=== PATIENT | male | born 1960 | race Caucasian/White ===

== ENCOUNTER 2022-01-18 06:54 | Observation (INO) ==
--- NOTE | 2021-12-15 10:59 | PAT Medication Instructions ---
Medication Instructions Date of Service December 15, 2021 Home Medications allopurinol 100 mg tablet 100 mg PO QAM multivitamin 1 tab PO QAM omega-3 fatty acids 1,000 mg PO QAM STOP taking 2 weeks before surgery omega-3 fatty acids 1,000 mg PO QAM DO NOT take the morning of surgery multivitamin 1 tab PO QAM Take morning of surgery With a small sip of water, OTHERWISE NOTHING TO EAT OR DRINK AFTER MIDNIGHT: allopurinol 100 mg tablet 100 mg PO QAM Other Notes If you have any questions please call us at [phone] or [phone] or [phone] or [phone]
--- NOTE | 2021-12-20 15:04 | Anesthesiology Consultation ---
Date of Service December 20, 2021 Assessment & Plan (1) Encounter for pre-operative examination: - COVID screening: Per assessment on 12/20: No known COVID-19 positive contacts or current COVID-19 related symptoms. Travel screen- returned from travel to [place] 2 weeks ago. Patient vaccinated. At surgeon discretion if preop Covid testing being done. - Patient acceptable risk for surgery pending surgeon-ordered PCP preop ev aluation (Dr. Lincoln, scheduled 12/31). Chart Review Chart Review: Patient seen in Pre Admission Testing Teaching & Discussion Pre-Anesthesia Teaching/Discussion Notes: Instructed NPO after midnight before surgery,except medications with 15 cc of water. Medication instructions provided according to the PAT guidelines. History Surgery Operation Date: 01/18/22 09:55 Proposed Procedures p Bilateral Total Knee Arthroplasty - Randell Hernandez DO Height/Weight Height: 5 ft 11 in Weight: 101.9 kg Allergies Allergy/AdvReac Type Severity Reaction Status Date / Time No Known Allergies Allergy Verified 12/14/21 16:32 Medications Home Medications Medication Instructions Recorded Confirmed Last Taken allopurinol 100 mg tablet 100 mg PO QAM 12/14/21 12/14/21 Unknown multivitamin 1 tab PO QAM 12/14/21 12/14/21 Unknown omega-3 fatty acids 1,000 mg PO QAM 12/14/21 12/14/21 Unknown Past Medical History Medical History Gout History of COVID-19 Dx 03/2020 - mild symptoms > resolved Exercise / Class Metabolic Activity II 4-5 Yardwork/Stairs/Walk up hill (one FS (no CP, no SOB)) Past Family History Family History Other No family history of adverse response to anesthesia Past Surgical History Surgical History History of colonoscopy History of repair of anterior cruciate ligament of left knee History of wisdom tooth extraction Past Anesthesia History No Hx of Anesthesia Complications and No Family Hx of Anesthesia Complications History of PONV No Hx of PONV and No Hx of Motion Sickness Social History Smoking Status: Never smoker tobacco type: smokeless tobacco Do You Dip or Chew Tobacco: Yes (chews (advised none DOS)) Hx Alcohol Use: Yes Alcohol type: beer alcohol intake frequency: a few times a week Hx Substance Use: No substance use type: does not use Review of Systems Patient denies chest pain, shortness of breath, dyspnea on exertion, fever, chills, cough, wheezing, palpitations. Physical Exam Vital Signs VITALS BP 152/84 P 82 TEMP 98.8 SP02 96%RA RESP 16 PHYSICAL Full cervical extension range of motion. Full TMJ range of motion. TMD 3.5 finger breaths Mallampati Score 2 Dentition: intact Lungs: clear throughout to auscultation Cardiac: regular rate and rhythm, no murmurs noted Spine: normal Carotid arteries: negative bruit Extremities: no edema Lab Results Anesthesia Preop Results Results Anesthesia Widget: WBC 6.12 K/ul (4.8-10.8) 12/20/21 Hgb 14.3 g/dl (14.0-18.0) 12/20/21 Hct 40.6 % (40.1-51.0) 12/20/21 Plt 173 K/uL (130-400) 12/20/21 Na 140 mmol/L (136-145) 12/20/21 K 4.0 mmol/L (3.5-5.1) 12/20/21 Cl 106 mmol/L (98-107) 12/20/21 CO2 26 mmol/L (21-32) 12/20/21 BUN 15 mg/dl (6-23) 12/20/21 Creat 1.15 mg/dl (0.6-1.4) 12/20/21 Glucose Level 107 mg/dl (70-99(Fasting)) H 12/20/21 PT 10.3 Seconds (9.0-12.0) 12/20/21 PTT 25.8 Seconds (21.0-31.0) 12/20/21 INR 1.0 (0.9-1.1) 12/20/21 HA1c 5.7 % (4.5-5.6) H 12/20/21 Urine Color Yellow 12/20/21 Urine Appearance Clear (Clear) 12/20/21 Urine pH 5.5 (4.5-7.5) 12/20/21 Urine Specific [place] 1.021 (1.000-1.030) 12/20/21 Urine Protein Negative (Negative) 12/20/21 Urine Glucose (UA) Negative (Negative) 12/20/21 Urine Ketones Negative (Negative) 12/20/21 Urine Blood Negative (Negative) 12/20/21 Urine Nitrite Negative (Negative) 12/20/21 Urine Bilirubin Negative (Negative) 12/20/21 Urine Urobilinogen Negative (Negative) 12/20/21 Urine Leukocyte Esterase Negative (Negative) 12/20/21 Blood Type A Positive 12/20/21 Antibody Screen NEGATIVE 12/20/21 Testing Electrocardiogram Date: 12/20/21 Findings: + NSR @ (81) Chest X-Ray Date: 12/20/21 FINDINGS: PA and lateral chest radiographs are obtained. No prior studies are available for comparison at the time of dictation. The cardiomediastinal silhouette is top normal for projection noting atherosclerotic calcification of the thoracic aorta. There is elevation of the right hemidiaphragm with bibasilar scarring/atelectasis. No airspace consolidation or large pleural effusion is identified. There is no pneumothorax. The bony thorax appears intact. Degenerative change is noted in the thoracic spine. IMPRESSION: No active disease in the chest. COVID-19 Risk Screen Screening Information COVID-19 Screen Date: 12/20/21 Exposure 21 Days Family/Household +COVID Last 21 Days: No Exposure 10 Days Any COVID Exposure Last 10 Days: No Symptoms Last 10 Days Experienced COVID Sx Last 10 Days: No + COVID 0-90 Days COVID + in Last 0-90 Days: No
--- NOTE | 2021-12-27 14:04 | History & Physical Report ---
Date of Service December 27, 2021 date of surgery: 01/18/22 Procedure: Bilateral Total Knee Arthroplasty Surgeon: Randell Hernandez Assessment & Plan (1) Degenerative arthritis of knee, bilateral: Plan: Risks and benefits of procedure discussed in detail today, patient would like to proceed with bilateral total knee replacements at [facility] as scheduled. will obtain medical clearance from Dr Lincoln prior to surgery as well as obtain PATs at [facility]. Will place on Xarelto x 1 month post op, f/u 2 weeks post op for routine post-operative care and x-ray, sooner if having any problems. will make arrangements for HHPT at the time of discharge. At this point in time, has failed conservative measures and would like to proceed with surgical intervention. The risks and benefits have been discussed including, but not limited to, risk of infection, nerve injury, stiffness, loss of motion, failure to improve, etc. Reasonable outcomes and options of treatment were discussed. An explanation of appropriate alternatives to the procedure that may be advantageous were discussed and their risks and benefits, as well as the risks and benefits of not proceeding with treatment. I offered to answer any additional inquiries concerning the treatment involved. All the patient's questions were answered. The patient is agreeable, understanding of the treatment plan and alternatives, and wishes to proceed with the treatment plan. History of Present Illness Chief Complaint: bilateral knee pain Primary Care Provider: NO PCP Chetan is a 61-year-old male who presents for preop evaluation prior to bilateral total knee replacements. Chetan has been having pain in both knees for many years now which is gradually worsened and is now affecting his daily activities including walking standing using stairs. He has previously tried cortisone injection as well as viscosupplementation with little relief. He has a history of left knee arthroscopy in the late . At this point time he admits to pain, decreased range of motion catching and stiffness in his knees. He has failed conservative measures like to proceed with bilateral total knee replacements Allergies Allergy/AdvReac Type Severity Reaction Status Date / Time No Known Allergies Allergy Verified 12/14/21 16:32 Home Medications Medication Instructions Recorded Confirmed Type allopurinol 100 mg tablet 100 mg PO QAM 12/14/21 12/14/21 History multivitamin 1 tab PO QAM 12/14/21 12/14/21 History omega-3 fatty acids 1,000 mg PO QAM 12/14/21 12/14/21 History Past Med/Surg History Medical History Gout History of COVID-19 Dx 03/2020 - mild symptoms > resolved Surgical History History of colonoscopy History of repair of anterior cruciate ligament of left knee History of wisdom tooth extraction Family History Other No family history of adverse response to anesthesia Social History Smoking Status: Never smoker Second Hand Exposure: No; Hx Alcohol Use: Yes Alcohol type: beer Hx Substance Use: No Preferred Language: French Communication Ability: Effective Lubrication Supervisor Required: No Beliefs That Will Affect Care: None Current Living Situation: Spouse and Family Current Living Situation Comment: Lives with and mother in law Feels Safe at Home: Yes Assistive Devices: Glasses Review of Systems Review of Systems: All systems reviewed & are unremarkable except as noted in HPI & below Constitutional: no fever, no chills and no sweats Respiratory: no cough and no dyspnea Cardiovascular: no chest pain, no dyspnea and no orthopnea Gastrointestinal: no abdominal pain, no nausea and no vomiting Musculoskeletal: as per Subjective / HPI Physical Exam Physical Exam: HT: 5ft 11in WT: 101.9kg Constitutional: WD/WN, vitals as above no acute distress Respiratory: normal respiratory effort, lungs clear to auscultation no respiratory distress, no labored breathing and does not use accessory muscles Cardiovascular: RRR, no murmur, no edema Gastrointestinal (Abdomen): normal bowel sounds, soft, nontender, no hepatosplenomegaly Musculoskeletal: Bilateral knee Physical exam Overall patient has varus alignment bilaterally, there is no atrophy or ecchymosis noted, +1 suprapatellar effusion in both knees, positive tenderness to both medial and lateral joint lines right knee, more medial sided tenderness to the left knee. negative patellar apprehension, positive crepitation noted to both knees with active ROM. bilateral knees stable to valgus and varus stress, trey negative, posterior drawer negative. Range of motion right knee 0/3/110, left knee 0/3/115. lower extremities are neurovascularly intact, calf soft and non tender, DP pulse +2 bilaterally. Results & Data Results & Data ([facility]) Diagnostic Findings Bilateral Knee X-ray: bilateral knee series confirm advanced degenerative changes bilateral knees, greatest medial compartments and patellofemoral joints, showing joint space narrowing, osteophyte formation and subchondral sclerosis. no acute bony pathology noted.
[~2022-01-18 06:54] MED LIST: ACETAMINOPHEN 500 MG TAB PO SCH; BUPIVACAINE 0.25% 30 ML VIAL ONE; BUPIVACAINE 0.5 % 5 MG/1 ML PF 10ML VIAL ONE; CeleBREX 200 MG CAP PO SCH; FAMOTIDINE 20 MG TAB PO SCH; GABAPENTIN 600 MG DOSE PO SCH; LR 500ML BOLUS, THEN 15ML/HR IV SCH; METOCLOPRAMIDE HCL 10 MG TABLET PO SCH; ROPIVACAINE 0.5% HCL/PF 150 MG, BUPIVACAINE 0.75% MPF 20 ML, EPINEPHrine 30MG/30ML (OR ... INSTIL SCH; TRANEXAMIC ACID 1,000 MG **IV Intra-op IV SCH; TRANEXAMIC ACID 1,000 MG **IV Pre-op IV SCH; ceFAZolin 2000MG 2,000 MG/15 ML SYR IV SCH; dexAMETHasone 4 MG TAB PO SCH
[2022-01-18] MEDS ORDERED: MIDAZOLAM HCL 1 MG/ML 2ML VIAL ONE ×2 (07:53→10:08)
[2022-01-18] MEDS ORDERED: PROPOFOL IV EMULSION 10 MG/ML 20 ML VIAL IV ONE ×4 (07:53→11:25)
[2022-01-18] MEDS ORDERED: LIDOCAINE 2% MPF LOCAL 5 ML VIAL INFIL ONE (07:53)
[2022-01-18] MEDS ORDERED: fentaNYL citrate 100 MCG/2 ML VIAL IV PRN (08:17)
[2022-01-18] MEDS ORDERED: ePHEDrine sulfate 50 MG/ML AMP IV PRN (08:17)
[2022-01-18] MEDS ORDERED: ATROPINE SULFATE 0.1 MG/ML 10ML SYR IV PRN (08:17)
[2022-01-18] MEDS ORDERED: ONDANSETRON INJ 2 MG/ML 2 ML VIAL IV PRN ×2 (08:17→14:32)
--- NOTE | 2022-01-18 08:53 | History & Physical Bridge Note ---
Date of Service January 18, 2022 History & Physical Bridge Note I have examined the patient, reviewed the History & Physical and in the interval since the performance of the History & Physical I have noted the following changes of clinical significance: no changes noted
[2022-01-18] MEDS ORDERED: ORTHO JOINT ANESTHETIC ONE (09:25)
--- NOTE | 2022-01-18 12:22 | Operative Report ---
Post Operative Report Pre & Post Diagnosis Operation Date: 01/18/22 09:25 Pre-Op Diagnosis: Bilateral Degenerative arthritis of knee Post-Op Diagnosis: Bilateral Degenerative arthritis of knee I identified the patient and participated in the time-out.: Yes Procedure Operation Date: 01/18/22 09:25 Actual Procedures p Bilateral Total Knee Arthroplasty(Bilateral) utilizing [employer] patient matched total knee arthroplasty left size 10 x 70 stem 8 femur 8 tibia 11 mm insert 35 oval patella right size 8 femur 8 tibia 13 mm insert 35 oval patella- Randell Hernandez DO Surgeon Randell Hernandez DO Medical Staff Credentialing Coordinator RAN Gonzalez Estimated Blood Loss 10 (5 ml for left 5ml for right ) Findings Consistent with Post-Op Diagnosis Patient presents with severe end-stage DJD bilateral knees with the above intraoperative findings noted varus alignment 10 degree flexion contractures eburnated [id number] bilaterally with moderate to large effusions bilaterally Specimens Bone and cartilage Drains Medium bore Hemovac Anesthesia Type MAC Spinal Regional Complications none Disposition Accompanied Patient To Recovery: No Disposition: Recovery Room Indications Patient presents with severe end-stage tricompartmental degenerative joint disease bilateral knees no response to conservative management patient presents for bilateral total knee arthroplasty. Description of Procedure After proper prepping and draping of the bilateral lower extremities, an anterior midline incision was made over the region of the extensor extensor mechanism of the left knee. After meticulous hemostasis was obtained and maintained in subcutaneous tissues a medial parapatellar incision was made The patella was subluxed lateralward the medial lateral gutter were cleaned from any hypertrophic synovitis and scar tissue of the distal femoral block was placed and the distal femoral osteotomy cut was made subsequently the chamfers anterior and posterior osteotomy cuts were made utilizing the 4-in-1 block the tibia was subsequently subluxed anteriorward medial and ateral meniscal remnants were excised in their entirety remnants of the anterior and posterior cruciate ligaments were excised in their entirety excellent exposure of the proximal tibia was noted to have multiple cystic areas within the left proximal tibia which were removed and subsequent short stubby stem was placed on the final component due to the nature of the several 1 x 1 cm size cyst was obtained the tibial osteotomy guide was placed on the proximal tibial osteotomy cut was made once again the knee was irrigated with copious amounts of sterile saline solution the patella was subsequently everted lateralward thickened scar tissue around the patella was removed the patella was subsequently cut utilizing a freehand technique and was drilled prepared for final preparation and placement of patella socially flexion-extension gaps were checked and the equal and symmetric trials were placed to the appropriate femoral and tibial trials with poly-spacer being placed for equal flexion and extension gaps and full range of motion including extension to 0 and flexion to 140 the trial components after having been taken to recovery range of motion was subsequently removed meticulous hemostasis was obtained and maintained subsequently a knee block injection of joint cocktail including ropivacaine 0.5% 150 mg. Bupivacaine 0.5% epinephrine 1-200,030 mL's toradol 30 mg dexamethasone 4 mg ketamine 10 mg clonidine 100 micrograms normal saline solution 30 mg was infiltrated into the soft tissues of the posterior knee medial lateral gutters and periosteal synovium special attention was paid to protect neurovascular structures at all times subsequently trial components having been removed the knee was irrigated with sterile saline solution. debris was removed the proximal tibia was subsequently prepared and was made ready for the placement of the tibial component tibial component was also cemented and tamped into position the femoral component was subsequently placed and cemented in the position the patellar component was subsequently cemented in position because hemostasis once again obtained and maintained wound having been thoroughly irrigated with debridement and debridement lavage was performed as well as a medial parap atellar incision closed with #1 Vicryl in interrupted fashion subcutaneous was closed with #2 Vicryl skin was closed with skin clips Next, an anterior midline incision was made over the region of the extensor extensor mechanism of the right knee. After meticulous hemostasis was obtained and maintained in subcutaneous tissues a medial parapatellar incision was made The patella was subluxed lateralward the medial lateral gutter were cleaned from any hypertrophic synovitis and scar tissue of the distal femoral block was placed and the distal femoral osteotomy cut was made subsequently the chamfers anterior and posterior osteotomy cuts were made utilizing the 4-in-1 block the tibia was subsequently subluxed anteriorward medial and ateral meniscal remnants were excised in their entirety remnants of the anterior and posterior cruciate ligaments were excised in their entirety excellent exposure of the proximal tibia was obtained the tibial osteotomy guide was placed on the proximal tibial osteotomy cut was made once again the knee was irrigated with copious amounts of sterile saline solution the patella was subsequently everted lateralward thickened scar tissue around the patella was removed the patella was subsequently cut utilizing a freehand technique and was drilled prepared for final preparation and placement of patella socially flexion-extension gaps were checked and the equal and symmetric trials were placed to the appropriate femoral and tibial trials with poly-spacer being placed for equal flexion and extension gaps and full range of motion including extension to 0 and flexion to 140 the trial components after having been taken to recovery range of motion was subsequently removed meticulous hemostasis was obtained and maintained subsequently a knee block injection of joint cocktail including ropivacaine 0.5% 150 mg. Bupivacaine 0.5% epinephrine 1-200,030 mL's toradol 30 mg dexamethasone 4 mg ketamine 10 mg clonidine 100 micrograms normal saline solution 30 mg was infiltrated into the soft tissues of the posterior knee medial lateral gutters and periosteal synovium special attention was paid to protect neurovascular structures at all times subsequently trial components having been removed the knee was irrigated with sterile saline solution. debris was removed the proximal tibia was subsequently prepared and was made ready for the placement of the tibial component tibial component was also cemented and tamped into position the femoral component was subsequently placed and cemented in the position the patellar component was subsequently cemented in position because hemostasis once again obtained and maintained wound having been thoroughly irrigated with debridement and debridement lavage was performed as well as a medial parapatellar incision closed with #1 Vicryl in interrupted fashion subcutaneous was closed with #2 Vicryl skin was closed with skin clips.. PA-C was necessary for prepping and drapping as well as wound closure of deep fascia Sub cutaneous tissue and skin and was necessary for the case. A sterile compressive dressings were placed, patient was taken to recovery in stable condition of report dictated by David I attest to the content of the Intraoperative Record and any orders documented therein. Any exceptions are noted below.Due to the complex nature of the procedure, the entire surgery was performed with the operational assistance of RAN Gonzalez. The tiler's assistant, under direct supervision, was involved in the actual performance of all aspects of the surgical procedure including hemostasis, tissue retraction and incision, instrument management, patient positioning, and wound closure. I attest to the content of the Intraoperative Record and any orders documented therein. Any exceptions are noted below.
--- NOTE | 2022-01-18 13:35 | Anesthesiology Progress Note ---
Date of Service January 18, 2022 Anesthesia Post Procedure Vital Signs Vital Signs: Temp Pulse Pulse Resp BP Pulse Ox O2 Del Method 01/18/22 13:30 62 13 122/73 95 Room Air 01/18/22 13:20 67 21 135/82 96 Room Air 01/18/22 13:10 60 17 114/70 94 Room Air 01/18/22 13:01 36.2 C L 65 18 104/66 95 Room Air 01/18/22 07:31 37 C 73 18 147/87 H 97 Room Air Transfer of Care Handoff Completed per policy Notes Mental Status: alert / awake / arousable and participated in evaluation Nausea / Vomiting: adequately controlled Pain: adequately controlled Airway Patency, RR, SpO2: stable & adequate BP & HR: stable & adequate Hydration State: stable & adequate Neuraxial Anesthesia: was administered and sensory block is resolving Anesthetic Complications: no major complications apparent and Pt Satisfied with anesthetic care
[2022-01-18] MEDS ORDERED: MAGNESIUM HYDROXIDE SUSP 30 ML UDC PO PRN (14:32)
[2022-01-18] MEDS ORDERED: METOCLOPRAMIDE HCL INJ 5 MG/ML 2 ML VIAL IV PRN (14:32)
[2022-01-18] MEDS ORDERED: diphenhydrAMINE Capsule 25 MG CAP PO PRN (14:32)
[2022-01-18] MEDS ORDERED: SODIUM CHLORIDE 0.9% 1000ML 1,000 ML IV SCH (14:32)
[2022-01-18] MEDS ORDERED: HYDROmorphone INJ 1 MG/ML SYRINGE IV PRN (14:32)
[2022-01-18] MEDS ORDERED: bisacodyL 10 MG SUPP PR PRN (14:32)
[2022-01-18] MEDS ORDERED: NALOXONE HCL 0.4 MG/1 ML VIAL/CARP IV PRN (14:32)
--- NOTE | 2022-01-18 14:57 | XRay Report ---
TWO VIEWS LEFT KNEE CLINICAL HISTORY: Postoperative examination. FINDINGS: AP and crosstable lateral portable views of the left knee are obtained. A left knee arthrop lasty is in near anatomic alignment. There has been undersurface remodeling of the patella. No acute fracture is seen. There are expected postoperative changes around the knee including a surgical drain , soft tissue edema, and subcutaneous gas. IMPRESSION: Expected postoperative changes status post left knee arthroplasty. No acute fracture is s een. ACT 112: Negative or not required by law. Electronically signed by: Aj Rocha M.D. 01/18/2022 2:55 PM
--- NOTE | 2022-01-18 14:58 | XRay Report ---
XR knee RT 1 or 2V routine CLINICAL HISTORY: Surgical Post Op TECHNIQUE: 2 views of the right knee were obtained. Comparison: None available at the time of this dictation. FINDINGS: Patient is status post total knee arthroplasty with expected postsurgical changes including soft tiss ue swelling and subcutaneous emphysema. No periarticular lucency or hardware fracture is seen. IMPRESSION: Expected postoperative appearance status post placement of total knee arthroplasty. ACT 112: Negative or not required by law. Electronically signed by: Fidel Claire M.D. 01/18/2022 2:56 PM
[2022-01-18] MEDS: ACETAMINOPHEN 500 MG TAB PO SCH ×2 (15:07→21:19)
--- NOTE | 2022-01-18 15:13 | Hospitalist Consultation ---
Date of Consultation January 18, 2022 Assessment & Plan (1) Status post bilateral knee replacements: -Patient is currently afebrile, hemodynamically stable, and stable on RA -No reported intra-operative complications -Antibiotics, pain management, DVT PPX, and IV fluids per the primary team -Agree with perioperative famotidine for stress ulcer prophylaxis. If plans to use NSAIDs for pain control would recommend adding a PPI for stress ulcer prophylaxis -Agree with AM CBC and BMP to monitor Hgb, renal function and electrolytes -Medicine will sign off but will review morning labs to monitor for any abnormalities. (2) Hyperlipidemia: -Continue omega-3 fatty acids (3) Gout: -Continue allopurinol Plan The patient was discussed with Dr. Valadez at the time of the consult History of Present Illness Reason for Consultation: Post-op medical management Requesting Physician: Randell Hernandez DO Attending Physician: Dr. Percy Valadez History of Present Illness Chetan is a 61 year old male with a PMH significant for gout, hyperlipidemia, and osteoarthritis who presented to the [facility] on 01/18/22 for elective BL knee replacements with Dr. Hernandez. Per the post-op report, EBL was listed as 10 mL total, there were no intra-operative complications, and anesthesia was listed as [facility]. At the time of the exam the patient was resting comfortably in bed in no acute distress with his sitting bedside. They confirm that he is only on allopurinol for gout and the omega-3 fatty acids for hyperlipidemia. He states he is feeling great post-op without pain or other complaints. He has been able to eat and drink without issue. He is looking forward to going home after tonight. Please refer to Dr. Valadez's attestation for any changes to the treatment plan Allergies Allergy/AdvReac Type Severity Reaction Status Date / Time No Known Allergies Allergy Verified 01/18/22 07:28 Home Medications Medication Instructions Recorded Confirmed Type allopurinol 100 mg tablet 100 mg PO QAM 12/14/21 01/18/22 History multivitamin 1 tab PO QAM 12/14/21 01/18/22 History omega-3 fatty acids 1,000 mg PO QAM 12/14/21 01/18/22 History Patient History Medical History (Updated 01/18/22 @ 15:08 by Driss Ricks PA-C) Gout History of COVID-19 Dx 03/2020 - mild symptoms > resolved Surgical History (Updated 01/18/22 @ 15:08 by Driss Ricks PA-C) History of colonoscopy History of repair of anterior cruciate ligament of left knee History of wisdom tooth extraction Family History Other No family history of adverse response to anesthesia Social History Smoking Status: Never smoker Second Hand Exposure: No; Do You Dip or Chew Tobacco: Yes (chews (advised none DOS)); Tobacco Cessation Education Requested by Patient: No Hx Alcohol Use: Yes Alcohol type: beer Hx Substance Use: No Preferred Language: Moldovan Communication Ability: Effective Retail Financial Analyst Required: No Beliefs That Will Affect Care: None Current Living Situation: Spouse and Family Current Living Situation Comment: Lives with and mother in law Other Information That Helps Us Care for You: No Feels Safe at Home: Yes Safety Concerns: Feels Safe At This Time Assistive Devices: Glasses Assistive Devices Comment: reading glasses Review of Systems Review of Systems: Denies current fever, chills, headache, changes in vision, hearing, taste, and smell, chest pain, SOB, cough, abdominal pain, nausea, vomiting, diarrhea, hematemesis, melena, dysuria, hematuria, and recent falls. All systems have been reviewed and are otherwise negative. Physical Exam Physical Exam: Physical Exam: General: In no acute distress, stated age, well-nourished, good hygiene HEENT: Normocephalic, atraumatic, no scleral icterus, pupils around round, symmetrical, and reactive to light, moist mucus membranes, trachea midline, no thyromegaly Chest/Pulm: No respiratory distress, symmetrical chest expansion, clear breath sounds throughout Cardiac: RRR, no murmurs noted Abdomen: Negative for ascites and bruising, normoactive bowel sounds, soft, non-tender to palpation throughout Musculoskeletal: Patient with BL LE's currently wrapped and with SCDs in place, no drainage noted from the wraps. Patient with intact sensation and motor function in the BL feet and toes Extremities: Patient with cap refill less than 3 secs in the lower extremities, no edema noted Skin: Warm, dry, no rashes , lesions, or scars noted Neuro: Alert and oriented to person, place, month, year, and president, no focal defects, CN II-XII tested and intact, finger to nose test negative, no tremors noted Psych: No acute distress, calm and cooperative during the exam Results & Data Results & Data ([facility]) Vital Signs (Past 12 Hours) Vital Signs Temp Pulse Pulse Resp BP Pulse Ox O2 Del Method 01/18/22 14:45 36.4 C L 72 16 151/80 H 96 Room Air 01/18/22 14:15 36.5 C 72 18 128/72 97 Room Air 01/18/22 14:00 36.3 C L 63 16 116/72 95 Room Air 01/18/22 13:45 68 14 128/84 96 Room Air 01/18/22 13:30 62 13 122/73 95 Room Air 01/18/22 13:20 67 21 135/82 96 Room Air 01/18/22 13:10 60 17 114/70 94 Room Air 01/18/22 13:01 36.2 C L 65 18 104/66 95 Room Air 01/18/22 07:31 37 C 73 18 147/87 H 97 Room Air Diagnostic Findings Knee X-Ray 01/18/22 13:07 XR knee RT 1 or 2V routine CLINICAL HISTORY: Surgical Post Op TECHNIQUE: 2 views of the right knee were obtained. Comparison: None available at the time of this dictation. FINDINGS: Patient is status post total knee arthroplasty with expected postsurgical changes including soft tissue swelling and subcutaneous emphysema. No periarticular lucency or hardware fracture is seen. IMPRESSION: Expected postoperative appearance status post placement of total knee arthroplasty. ACT 112: Negative or not required by law. Electronically signed by: Fidel Claire M.D. 01/18/2022 2:56 PM Knee X-Ray 01/18/22 13:07 TWO VIEWS LEFT KNEE CLINICAL HISTORY: Postoperative examination. FINDINGS: AP and crosstable lateral portable views of the left knee are obtained. A left knee arthroplasty is in near anatomic alignment. There has been undersurface remodeling of the patella. No acute fracture is seen. There are expected postoperative changes around the knee including a surgical drain, soft tissue edema, and subcutaneous gas. IMPRESSION: Expected postoperative changes status post left knee arthroplasty. No acute fracture is seen. ACT 112: Negative or not required by law. Electronically signed by: Aj Rocha M.D. 01/18/2022 2:55 PM ECG Additional Comments: No ECG obtained prior to consult PG Care Time/CCT Total # of Minutes Spent Total Time Spent with Patient: Total time spent is greater than 50% in coordination of care (as documented) at patient's floor/unit and/or counseling patient: C[place] [address] Office/OBS Consult Lvl 3 Patient Type Established History Detailed Exam Detailed Medical Decision Making Low Complexity Diagnoses Status post bilateral knee replacements Z96.653 Hyperlipidemia E78.5 Gout M10.9
[2022-01-18] MEDS: oxyCODONE HCL IR 5 MG TAB (IMMEDIATE RELEASE) PO PRN ×3 (15:57→23:58)
[2022-01-18] MEDS: ceFAZolin 2000MG 2,000 MG/15 ML SYR IV SCH (17:42)
[2022-01-18] MEDS: DOCUSATE SODIUM 100 MG CAP PO SCH (20:16)
[2022-01-18] MEDS ORDERED: SENNA 8.6 MG TAB PO SCH (21:00)
[2022-01-19] MEDS: ceFAZolin 2000MG 2,000 MG/15 ML SYR IV SCH (04:03)
[2022-01-19] MEDS: oxyCODONE HCL IR 5 MG TAB (IMMEDIATE RELEASE) PO PRN ×2 (06:12→13:04)
[2022-01-19] MEDS: ACETAMINOPHEN 500 MG TAB PO SCH ×2 (06:13→13:05)
[2022-01-19 07:07] LABS: Hematocrit (blood only) 31.5 % (40.1-51.0); Hemoglobin 10.9 g/dl (14.0-18.0); Mean Corpuscular Hgb Conc 34.6 g/dL (32.0-36.0); Mean Corpuscular Volume 92.4 fL (80.0-100.0); Mean Platelet Volume 10.4 fL (9.4-12.4); Platelet Count 169 K/uL (130-400); RDW Standard Deviation 40.9 fL (36.4-46.3); Red Blood Count 3.41 M/uL (4.63-6.08); White Blood Count 12.78 K/ul (4.8-10.8)
[2022-01-19 07:30] LABS: BUN Creatinine Ratio 17.4 (10-20); Calcium 8.2 mg/dl (8.5-10.1); Creatinine Clr Calc Pharmacy 78.5 ml/min; Est GFR (Non-African American) 64.7 ml/min; Potassium 4.3 mmol/L (3.5-5.1)
[2022-01-19] MEDS: DOCUSATE SODIUM 100 MG CAP PO SCH (08:42)
[2022-01-19] MEDS ORDERED: allopurinoL 100 MG TAB PO SCH (09:00)
[2022-01-19] MEDS ORDERED: RIVAROXABAN 10 MG TABLET PO SCH (09:00)
[2022-01-19] MEDS ORDERED: MULTIVITAMIN TAB PO SCH (09:00)
--- NOTE | 2022-01-19 09:18 | Orthopedic Progress Note ---
Date of Service January 19, 2022 Assessment & Plan (1) History of total bilateral knee replacement: Plan: POD #1 s/p bilateral TKAs pt/ot dvt proph with BENY/SCD/Xarelto x 1 month plan for d/c home with home health PT Admission and Anticipated Discharge Date Admission Date: January 18, 2022 Subjective POD #1 s/p Bilateral TKA Review of Systems Constitutional: no fever, no chills and no sweats Respiratory: no cough and no dyspnea Cardiovascular: no chest pain and no dyspnea Gastrointestinal: no abdominal pain, no nausea and no vomiting Physical Exam Physical Exam: Vital Signs Temp 36.3 C L 01/19/22 07:42 Pulse 78 01/19/22 07:42 Resp 16 01/19/22 07:42 BP 123/72 01/19/22 07:42 Pulse Ox 95 01/19/22 07:42 O2 Del Method 01/19/22 07:42 Intake & Output 01/18/22 01/19/22 01/19/22 18:59 06:59 18:59 Intake Total 3400 / 4906.667 1506.667 / 4906.66 7 350 / 350 Output Total 615 / 1915 1300 / 1915 Balance 2785 / 2991.667 206.667 / 2991.667 350 / 350 Weight 100.698 kg Intake: IV 100 / 1006.667 906.667 / 1006.667 Lactated Ringe r's 1,000 ml @ 15 0 / 0 mls/hr IV .Q24 H [facility] Rx#: [id number] Sodium Chlorid e 0.9% 1000ML 1, 906.667 / 906.667 000 ml @ 100 m ls/hr IV .Q10H [facility] Rx#:[id number] Tranexamic Aci d / 0.7% NaCl 1, 100 / 100 000 mg In 100 ml @ 600 mls/hr IV TODAY@0600 [facility] Rx#:[id number] IV Perioperative 1850 / 1850 Oral 1450 / 2050 600 / 2050 350 / 350 Output: Urine 200 / 700 500 / 700 Estimated Blood Loss 10 / 10 Drain Output 405 / 1205 800 / 1205 Left Knee Hemo vac #1 380 / 880 500 / 880 Right Knee Hem ovac #2 25 / 325 300 / 325 Other: # Unmeasured Voi ds 3 Weight Measureme nt Method Standing Scale Constitutional: WD/WN, vitals as above Musculoskeletal: Bilateral lower Legs: NVDI, calf SNT, negative toña sign. DP palpable, able to wiggle toes/ankle movement without difficulty. dressing clean dry and intact. Results & Data ([facility]) Vital Signs (Past 12 Hours) Vital Signs Temp Pulse Resp BP Pulse Ox O2 Del Method 01/19/22 07:42 36.3 C L 78 16 123/72 95 Room Air 01/19/22 03:28 36.7 C 69 18 125/66 96 Room Air 01/18/22 23:17 36.6 C 80 18 120/63 98 Room Air Laboratory Results Laboratory Results WBC 12.78 K/ul (4.8-10.8) H 01/19/22 06:55 RBC 3.41 M/uL (4.63-6.08) L 01/19/22 06:55 Hgb 10.9 g/dl (14.0-18.0) L 01/19/22 06:55 Hct 31.5 % (40.1-51.0) L 01/19/22 06:55 MCV 92.4 fL (80.0-100.0) 01/19/22 06:55 MCH 32.0 pg (25.0-34.0) 01/19/22 06:55 MCHC 34.6 g/dL (32.0-36.0) 01/19/22 06:55 RDW Std Deviation 40.9 fL (36.4-46.3) 01/19/22 06:55 RDW Coeff of Tho 12.0 % (11.5-14.5) 01/19/22 06:55 Plt Count 169 K/uL (130-400) 01/19/22 06:55 MPV 10.4 fL (9.4-12.4) 01/19/22 06:55 Sodium 138 mmol/L (136-145) 01/19/22 06:55 Potassium 4.3 mmol/L (3.5-5.1) 01/19/22 06:55 Chloride 107 mmol/L (98-107) 01/19/22 06:55 Carbon Dioxide 26 mmol/L (21-32) 01/19/22 06:55 Anion Gap 5 (3-11) 01/19/22 06:55 BUN 21 mg/dl (6-23) 01/19/22 06:55 Creatinine 1.21 mg/dl (0.6-1.4) 01/19/22 06:55 Est Cr Clr Drug Dosing 78.5 ml/min 01/19/22 06:55 Est GFR ( Amer) 75.0 ml/min 01/19/22 06:55 Est GFR (Non-Af Amer) 64.7 ml/min 01/19/22 06:55 BUN/Creatinine Ratio 17.4 (10-20) 01/19/22 06:55 Glucose 150 mg/dl (70-99(Fasting)) H 01/19/22 06:55 Calcium 8.2 mg/dl (8.5-10.1) L 01/19/22 06:55 SARS-CoV-2, RNA, NAAT NEGATIVE (NEGATIVE) 01/18/22 Unknown Impressions Knee X-Ray 01/18/22 13:07 XR knee RT 1 or 2V routine CLINICAL HISTORY: Surgical Post Op TECHNIQUE: 2 views of the right knee were obtained. Comparison: None available at the time of this dictation. FINDINGS: Patient is status post total knee arthroplasty with expected postsurgical changes including soft tissue swelling and subcutaneous emphysema. No periarticular lucency or hardware fracture is seen. IMPRESSION: Expected postoperative appearance status post placement of total knee arthroplasty. ACT 112: Negative or not required by law. Electronically signed by: Fidel Claire M.D. 01/18/2022 2:56 PM
--- NOTE | 2022-01-19 09:25 | Discharge Summary ---
Date of Service date of discharge: January 19, 2022 date of admssion: 01/18/22 Principal Diagnosis bilateral total knee replacements Discharge Exam Musculoskeletal bilateral legs: NVDI, calf SNT, negative toña sign. DP palpable, able to wiggle toes/ankle movement without difficulty. TAMY dressings clean dry and intact. expected post-operative bruising noted. Discharge Data Allergies Allergy/AdvReac Type Severity Reaction Status Date / Time No Known Allergies Allergy Verified 01/18/22 07:28 Consultations 01/14/22 12:30 Consult Hospitalist Routine Procedures Performed Operation Date: 01/18/22 09:25 Actual Procedures p Bilateral Total Knee Arthroplasty(Bilateral) - Randell Hernandez DO Ordered Studies 01/18/22 05:00 US - OR guided needle placemen Routine Hospital Course (1) History of total bilateral knee replacement: POD #1 s/p bilateral TKAs pt/ot dvt proph with BENY/SCD/Xarelto x 1 month plan for d/c home with home health PT Total Time Total Time Spent Total Time Spent (In Minutes): 20 Discharge Plan Discharge Items Patient Disposition: Home - Home Health Services Reason For Visit: Tricompartment Osteoarthritis of both knees Discharge Diagnosis: bilateral total knee replacements Activity: Per Instructions section Weightbearing Comment: WBAT WITH WALKER Non-emergency contact: Surgeon Call non-emergency contact if: you have any medication questions, your tempera ture is above 101, your wound has increased redness, your wound has increased drainage and your wound pain has increased Follow-up/Referrals: Markel Lincoln [Primary Care Provider] - Diet: Regular Addtl Attending Provider Instructions: ACTIVITY RECOMMENDATIONS: SELF CARE INSTRUCTIONS AFTER TOTAL KNEE REPLACEMENT A. You may need to continue a physical therapy program after discharge from the hospital. There are several options available to you. Your doctor will assist you in selecting the best one for you. 1. An out-patient facility 2 to 3 times a week for therapy or home therapy. 2. Continue working on all exercises taught to you in the hospital. Your goals should be to increase bending of your knee to 90 degrees and beyond and to fully straighten your knee. B. You may progress at your own pace from walking with a walker or crutches to a cane; then to no assistive devices. C. Make walking a part of your daily routine. Be up as much as comfortable with rest periods throughout the day. Rest with leg elevation is very important. Use the ice wrap frequently for the first 3-4 weeks. D. There are no restrictions on activities. You may ride in a car, shop, participate in voltage tester and all social activities. E. Wear the long elastic stockings (BENY hose) 20 hours a day for 2 weeks after surgery. They can be removed several times a day for laundering and for a bath. F. You may shower, no tub baths until cleared by your doctor. SPECIAL CARE INSTRUCTIONS: VERY IMPORTANT TO READ AND REVIEW A. There are a few signs you need to watch for after you are home. Call [facility] if you notice any of the followin. Increased severe knee pain. Some pain is expected especially when you exercise. 2. Increased swelling in your leg or knee; pain or swelling of the calf muscle in either lower leg. 3. Any fluid drainage from the incision. 4. Shortness of breath or chest pain. B. Please call [facility] at if you have any concerns or questions about your operation or recovery. The doctor or his nurse will return your call promptly. C. You must take antibiotics before dental work, bladder, bowel or other surgery. Your doctor will provide you with a permanent care to carry describing this precaution. IMPORTANT: * REMEMBER TO TAKE ASPIRIN, 81 MG, TWICE DAILY FOR 4 WEEKS UNLESS OTHERWISE DIRECTED. THIS IS YOUR BLOOD THINNER. * HIGH RISK PATIENTS MAY BE PRESCRIBED A STRONGER BLOOD THINNER. THIS WILL BE PROVIDED AT DISCHARGE. * CALL IF INCREASED PAIN, REDNESS, DRAINAGE OR FEVER GREATER THAT 101. * WEAR BENY HOSE 20 HOURS PER DAY FOR 2 WEEKS. DRESSING INSTRUCTIONS * TAMY Dressing- This is a large suction dressing covering your incision. This will help pull any excess drainage from the wound and allow your incision to heal properly. You may shower with this if you can keep the unit outside of the shower. If any bleeding or leakage is noted please call your doctor's office. This will remain on your incision for 7 days and then should be removed. This can be done yourself or by the home nursing staff if applicable. The entire unit is disposable once removed. Once removed, keep incision clean and dry. If redness or drainage is noted, please call your surgeon. ONCE TAMY IS REMOVED, FOLLOW THESE INSTRUCTIONS: DERMABOND Prineo- This is a mesh tape dressing that is covered with glue. It should remain in place until the incision is properly healed, usually 10-14 days. This dressing is designed to naturally slough off. You may trim the excess mesh tape as it peels off. Incision may be briefly wet in a shower. Dry immediately by blotting with a clean, dry towel. Do not bath or swim until instructed by your doctor. Do not scratch, rub, or pick at the dressing. Do not apply any topical ointments or lotions until dressing is completely removed and/or instructed by your doctor. There may be a small piece of suture material at one end of your incision. Do not pull or trim this. If it is bothersome or catching on clothing, you may cover it with a band-aid. IF INCISION IS LEAKING THROUGH DRESSING, CALL THE OFFICE . FOLLOW UP VISIT: If appointment is not already scheduled: Please call [facility] to make a follow-up appointment for 2 weeks after your surgery at . Pending Studies at Discharge: No Stand-Alone Forms: [facility] Medications and DC Order Prescriptions: New oxycodone 5 mg Tablet 5 - 10 mg PO Q6H PRN (Reason: pain) Qty: 30 0RF Rx Instructions: ongoing therapy, supervising Dr Carter Hernandez. Max 6 tabs in 24 hours Xarelto 10 mg Tablet 10 mg PO DAILY 28 Days Qty: 28 0RF docusate sodium 100 mg Capsule 100 mg PO BID 10 Days Qty: 20 0RF cefadroxil 500 mg capsule 500 mg PO BID 14 Days Qty: 28 0RF Continued allopurinol 100 mg Tablet 100 mg PO QAM multivitamin Tablet 1 tab PO QAM Discontinued [place] 3 Capsule 1,000 mg PO QAM Discharge Orders: Discharge Order (Routine); Ordered 01/19/22 Ordered By: Alcon Ramirez Admission Data Admit Date/Time: 01/18/22 13:07 Attending Provider: Randell Hernandez Admit Provider: Randell Hernandez Primary Care Provider: Markel Lincoln Other Providers: Nadir Ramirez Natalie B.
--- NOTE | 2022-01-19 09:55 | Communication Note ---
Date of Service: January 19, 2022 Patient seen, dressed and ready for discharge with in room. No need for formal visit/bill given stable/dressed and discharge orders already writted. 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 Pain controlled. No CP/SOB. Sitting up in recliner looking out the window. Discussed resumed his lisinopril but to wait until tomorrow to resume his HCTZ. No fever/chills, abdominal pain, nausea or vomiting. Labs stable. WBC elevation likely 2nd to decadron given with steroids. Has remained afebrile. Stable for discharge from medical standpoint. Dispo per primary service.
== END 2022-01-19 14:35 | disposition home health service (06) ==
LOC: 3E 06:54 → ASU 06:54